=== PATIENT | female | born 1950 | race Caucasian/White ===

== ENCOUNTER → 2020-07-17 11:33 | Outpatient (CLI) | payer MEDICARE, OTHER, SELFPAY ==
[2020-07-17 13:09] LABS: Coronavirus 19 IgG Antibody Negative (Negative); Coronavirus 19 IgM Antibody Negative (Negative)
== END ==
PROVIDERS: Visit Provider Internal Medicine Gastroenterology
DX: Z01.812 Encounter for preprocedural laboratory examination (principal)
CPT/HCPCS: 36415; 86328

== ENCOUNTER 2020-07-19 12:16 | Day surgery (SDC) | payer MEDICARE, OTHER, SELFPAY ==
[2020-07-16 15:10] VITALS: BMI 32.4
[2020-07-19 12:43] VITALS: BP 157/96; PULSE 72; RESP 18; TEMP 36.1; O2SAT 96
[2020-07-19 12:55] VITALS: O2SAT 99
--- NOTE | 2020-07-19 12:58 | P.PN_ITS ---
[facility] Anesthesia Checklist - Patient Identification Patient Identification: Arm Band, Verbal (Name & ) - Structural Data Admitted From: Home Planned Operative Procedure/s: Colonoscopy Consent for Planned Operative Procedure(s) Verified: Yes Verified Documents: Surgical Consent, History and Physical - NPO Status Verified Time NPO: 00:00 - Chart Verification Results Verified: None - Additional verifications Anesthesia Reactions: No - Airway Assessment C-Spine Mobility Assessed: Yes TMJ Mobility Assessed: Yes Dentition: Good Dentition - Neurological Assessment Level of Consciousness: Awake, Alert, Appropriate, Follows Commands Hx Seizures: No Numbness or tingling in extremities: No - Anesthesia Plan Anesthesia Risk discussed: Yes Anesthesia Plan: Verified ASA Class: III Anesthesia Type: MAC [facility] History I have reviewed the patient's past medical history: Yes Medical History: Reports:: Cerebrovascular Accident, Depression, Hyperlipidemia, Hypertension Denies:: Cancer, Diabetes Mellitus Type 1, Diabetes Mellitus Type 2, Internal Pacemaker, MRSA, Seizures *Have you ever received a pneumonia vaccine?: Yes *Have you received a flu vaccine this season?: Yes Comment:: obesity, Anesthesia experience/problems:: None Laterality Cases: Left: Total Knee Replacement Other Surgeries: Yes: Hysterectomy-Partial. No: Pacemaker Amputation: No Fractures: No Comment: Laminectomy, ASD repair, bunionectomy - *Social History Last grade of school completed: Advanced degree Smoking Status: Never smoker Alcohol Intake: current Alcohol Intake Frequency:: holidays/special occasions only Substance Use Type: denies use *Occupational Status:: retired Housing: house Household Members: none *Travel in the last 8 weeks: None Family Hx:: Other (NA)
--- NOTE | 2020-07-19 13:23 | HMH.PROC ---
[facility] Procedure Note Procedure Note:: Colonoscopy Procedure Report: Colonoscopy with cold biopsies Endoscopist: Benedicto Burnett II, MD Referring physician: Joe Flores MD Date of Procedure: July 19, 2020 Equipment: Olympus 180 variable stiffness pediatric colonoscope Sedation: MAC sedation Indication: Mrs. Oneill is a 69-year-old female with chronic diarrhea that began in August 2019. She has between 3 and 10 bowel movements daily. She has bowel urgency and bowel incontinence. At one point, she was in adult diapers and was having fecal incontinence daily. The patient has had crampy lower abdominal pain that precedes the diarrhea and some bloating. She reports no excessive gassiness. She does have some bladder issues but reports no bladder incontinence or chronic lower back pain. She reports no rectal bleeding, weight loss or family history of colon cancer. She did take Lomotil initially which did not help. She did have some improvement with corticosteroids (prednisone) and antibiotics (Flagyl). Her last colonoscopy was with id in March 2008. At that time, she had mild to moderate ischemic colitis. Procedure: Prior to the procedure, a history and physical exam was performed, and patient's medications and allergies were reviewed. The risks, benefits and alternatives of the sedation and procedure were discussed with the patient. All questions were answered and informed consent was obtained. The patient was brought to the procedure room. Patient identification and proposed procedure were verified by the physician and the nurse. The patient was placed in a left lateral decubitus position and the scope was passed under direct vision. Throughout the procedure, the patient's blood pressure, pulse, and oxygen saturations were monitored continuously. The colonoscopy was accomplished without difficulty. The patient tolerated the procedure well. Findings: On digital rectal examination there was normal rectal tone. There were no external hemorrhoids. The colonoscope was introduced through the anal canal to the rectum and advanced to the cecum. The ileocecal valve and appendiceal orifice were identified. The scope was advanced a short distance into the ileum which appeared grossly normal. The scope was then withdrawn into the colon. The cecum and ascending colon were normal and cold biopsies were taken from the right colon and separately from the left colon to rule out microscopic colitis. There were 2 diminutive 2 to 3 mm polyps in the transverse colon that were removed with cold biopsies. The remainder of the descending, sigmoid and rectum were grossly normal. Upon retroflexion within the rectum there were grade 1 internal hemorrhoids.The preparation was excellent throughout with [place] Preparation Score of 9. The cecal time was 12 minutes. Impression: 1. Diminutive transverse colon polyps x2 (2 to 3 mm polyps) Plan: There was no evidence of colitis or Crohn's disease. The biopsies will confirm whether there is microscopic colitis. If the patient indeed does have microscopic (lymphocytic or collagenous) colitis, I would recommend Entocort/budesonide therapy. If the biopsies are normal, I would consider Viberzi. I would also consider adding bulk fiber and antispasmodic (dicyclomine).
[2020-07-19 13:24] VITALS: BP 103/42; PULSE 54; RESP 12; TEMP 36.3; O2SAT 96
[2020-07-19 13:34] VITALS: BP 124/88; PULSE 57; RESP 16; O2SAT 98
[2020-07-19 13:44] VITALS: BP 136/56; PULSE 57; RESP 16; O2SAT 97
[2020-07-19 13:46] VITALS: BP 139/64; PULSE 59; RESP 16; TEMP 36.3; O2SAT 98
== END 2020-07-19 14:09 | disposition home or self-care (01) ==
PROVIDERS: PCP Family Medicine; Visit Provider Internal Medicine Gastroenterology
PROC: 0DJD8ZZ Inspection of Lower Intestinal Tract, Via Natural or Artificial Opening Endoscopic (ICD-10-PCS; CPT 45378; principal; 2020-07-19 13:30)
DX: K63.5 Polyp of colon (principal); F32.9 Major depressive disorder, single episode, unspecified; E78.5 Hyperlipidemia, unspecified; I10 Essential (primary) hypertension; Z86.73 Personal history of transient ischemic attack (TIA), and cerebral infarction without residual deficits
CPT/HCPCS: 45380; 88305